=== PATIENT | male | born 1960 | race Caucasian/White ===

== ENCOUNTER 2017-07-29 15:25 | Inpatient (IN) | payer BC ==
[2017-07-29] MEDS ORDERED: HEPARIN SODIUM,PORCINE/D5W PMX 25,000 UNIT in DEXTROSE/WATER 1 500ML.BAG IV STA (16:57)
[2017-07-29] MEDS ORDERED: amLODIPine 10 MG TAB PO STA (17:13)
[2017-07-29 17:18] LABS: Basophils % (A) 1 %; CH 31.3; Eosinophils # (A) 0.2 k/uL (0-0.7); Eosinophils % (A) 3 %; HCT 44.8 % (39.0-53.0); HDW 2.61; HGB 15.8 gm/dL (13.0-17.5); Luc # (Auto) 0.22; Luc % (Auto) 4; Lymphocytes # (A) 1.3 k/uL (1.0-4.8); Lymphocytes % (A) 26 %; MCH 31.6 pg (25.0-35.0); MCHC 35.3 g/dL (31.0-37.0); MCV 89.6 fL (80.0-100.0); Mean Platelet Volume 7.9; Monocytes # (A) 0.4 k/uL (0-1.0); Monocytes % (A) 8 %; Neutrophils % (A) 58 %; WBC 5.2 k/uL (3.8-10.6); WBC (Perox) 5.15
[2017-07-29 17:22] LABS: Partial Thromboplastin Time 24.1 sec (22.0-30.0); Prothrombin Time 9.9 sec (9.0-12.0)
[2017-07-29 17:24] LABS: ALT 87 U/L (21-72); AST 42 U/L (17-59); Alkaline Phosphatase 55 U/L (38-126); Anion Gap 11 mmol/L; Blood Urea Nitrogen 20 mg/dL (9-20); Calcium 9.4 mg/dL (8.4-10.2); Carbon Dioxide 28 mmol/L (22-30); Chloride 101 mmol/L (98-107); Glucose 91 mg/dL (74-99); Magnesium 1.9 mg/dL (1.6-2.3); Non-African American GFR(MDRD) >60 (>60 ml/min/1.73 sqM); Potassium 4.4 mmol/L (3.5-5.1); Sodium 140 mmol/L (137-145); Total Bilirubin 1.1 mg/dL (0.2-1.3); Total Protein 7.9 g/dL (6.3-8.2)
--- NOTE | 2017-07-29 17:53 | XR ---
EXAMINATION TYPE: XR chest 2V DATE OF EXAM: 07/29/2017 COMPARISON: 12/23/2010 HISTORY: Dysrhythmia, hypertension TECHNIQUE: Frontal and lateral views of the chest are obtained. FINDINGS: EKG leads noted. There is no pulmonary edema, focal air space opacity, pleural effusion, o r pneumothorax. The cardiac silhouette size is moderately enlarged. The thoracic aorta is tortuous. The skeletal structures are unremarkable. IMPRESSION: 1. No acute pulmonary or pleural process. 2. Mildly enlarged cardiac silhouette. 3. Tortuous thoracic aorta.
[2017-07-29] MEDS ORDERED: ONDANSETRON 4 MG/2 ML VIAL IVP PRN (20:04)
[2017-07-29] MEDS ORDERED: NALOXONE 0.4 MG/ML 1 ML VIAL IV PRN (20:04)
--- NOTE | 2017-07-29 20:04 | ED ---
Arrhythmia/Palpitations HPI - General Chief Complaint: Arrhythmia/Palpitations Stated Complaint: heart problems-sent by Time Seen by Provider: 07/29/17 16:53 Source: patient Mode of arrival: wheelchair Limitations: no limitations - History of Present Illness Initial Comments: Patient complains of not feeling well. He was at his primary care doctor earlier today, and an EKG was completed. He was found to be in atrial fibrillation. Patient has no pain or swelling the legs. He does not feel like he is having palpitations. He denies any recent long plane or cards. He has not traveled anywhere. He has not taken any medication that is unusual for him. He denies any neck pain or stiffness. He does not take blood thinners. - Related Data Home Medications Medication Instructions Recorded Confirmed Nebivolol HCl [Bystolic] 10 mg PO DAILY 11/26/15 07/29/17 Lisinopril [Prinivil] 10 mg PO DAILY 07/29/17 07/29/17 Ubidecarenone [Co Q-10] 100 mg PO DAILY 07/29/17 07/29/17 Allergies Allergy/AdvReac Type Severity Reaction Status Date / Time No Known Allergies Allergy Verified 07/29/17 16:28 Review of Systems ROS Statement: Those systems with pertinent positive or pertinent negative responses have been documented in the HPI. ROS Other: All systems not noted in ROS Statement are negative. Past Medical History Past Medical History: Hypertension History of Any Multi-Drug Resistant Organisms: C-DIFF Date of last positivie culture/infection: 2014 Past Surgical History: Hernia Repair Additional Past Surgical History / Comment(s): colonoscopy Past Psychological History: No Psychological Hx Reported Smoking Status: Former smoker Past Alcohol Use History: Daily Past Drug Use History: Marijuana General Exam Limitations: no limitations General appearance: alert, in no apparent distress Head exam: Present: atraumatic, normocephalic, normal inspection Eye exam: Present: normal appearance, PERRL, EOMI. Absent: scleral icterus, conjunctival injection, periorbital swelling ENT exam: Present: normal exam, mucous membranes moist Neck exam: Present: normal inspection. Absent: tenderness, meningismus, lymphadenopathy Respiratory exam: Present: normal lung sounds bilaterally. Absent: respiratory distress, wheezes, rales, rhonchi, stridor Cardiovascular Exam: Present: regular rate, normal rhythm, normal heart sounds. Absent: systolic murmur, diastolic murmur, rubs, gallop, clicks GI/Abdominal exam: Present: soft, normal bowel sounds. Absent: distended, tenderness, guarding, rebound, rigid Extremities exam: Present: normal inspection, full ROM, normal capillary refill. Absent: tenderness, pedal edema, joint swelling, calf tenderness Back exam: Present: normal inspection Neurological exam: Present: alert, oriented X3, CN II-XII intact Psychiatric exam: Present: normal affect, normal mood Skin exam: Present: warm, dry, intact, normal color. Absent: rash Course Vital Signs 07/29/17 07/29/17 07/29/17 15:37 17:10 17:42 Temperature 98.4 F Pulse Rate 76 77 Respiratory 18 18 Rate Blood Pressure 230/140 213/117 177/122 O2 Sat by Pulse 96 98 Oximetry 07/29/17 07/29/17 18:39 19:34 Temperature Pulse Rate 68 Respiratory 18 Rate Blood Pressure 170/110 171/131 O2 Sat by Pulse 98 Oximetry EKG Findings - EKG Comments: EKG Findings:: twelve-lead EKG is obtained, interpreted by me as showing ventricular rate 78 bpm, no P waves are present, QRS complexes are normal, no ST elevation or depression, interpreted by me as atrial flutter fibrillation. Medical Decision Making - Medical Decision Making patient presents with new onset atrial fibrillation. I have ordered IV heparin. He will be admitted to the hospital. - Lab Data Result diagrams: 07/29/17 16:11 07/29/17 16:11 Lab Results 07/29/17 07/29/17 07/29/17 Range/Units 16:11 16:11 16:11 WBC 5.2 (3.8-10.6) k/uL RBC 5.00 (4.30-5.90) m/uL Hgb 15.8 (13.0-17.5) gm/dL Hct 44.8 (39.0-53.0) % MCV 89.6 (80.0-100.0) fL MCH 31.6 (25.0-35.0) pg MCHC 35.3 (31.0-37.0) g/dL RDW 13.0 (11.5-15.5) % Plt Count 165 (150-450) k/uL Neutrophils % 58 % Lymphocytes % 26 % Monocytes % 8 % Eosinophils % 3 % Basophils % 1 % Neutrophils # 3.0 (1.3-7.7) k/uL Lymphocytes # 1.3 (1.0-4.8) k/uL Monocytes # 0.4 (0-1.0) k/uL Eosinophils # 0.2 (0-0.7) k/uL Basophils # 0.0 (0-0.2) k/uL PT 9.9 (9.0-12.0) sec INR 1.0 (<1.2) APTT 24.1 (22.0-30.0) sec Sodium 140 (137-145) mmol/L Potassium 4.4 (3.5-5.1) mmol/L Chloride 101 (98-107) mmol/L Carbon Dioxide 28 (22-30) mmol/L Anion Gap 11 mmol/L BUN 20 (9-20) mg/dL Creatinine 0.98 (0.66-1.25) mg/dL Est GFR (MDRD) Af Amer >60 (>60 ml/min/1.73 sqM) Est GFR (MDRD) Non-Af >60 (>60 ml/min/1.73 sqM) Glucose 91 (74-99) mg/dL Calcium 9.4 (8.4-10.2) mg/dL Magnesium 1.9 (1.6-2.3) mg/dL Total Bilirubin 1.1 (0.2-1.3) mg/dL AST 42 (17-59) U/L ALT 87 H (21-72) U/L Alkaline Phosphatase 55 (38-126) U/L Troponin I (0.000-0.034) ng/mL Total Protein 7.9 (6.3-8.2) g/dL Albumin 4.8 (3.5-5.0) g/dL TSH 2.750 (0.465-4.680) mIU/L 07/29/17 Range/Units 16:11 WBC (3.8-10.6) k/uL RBC (4.30-5.90) m/uL Hgb (13.0-17.5) gm/dL Hct (39.0-53.0) % MCV (80.0-100.0) fL MCH (25.0-35.0) pg MCHC (31.0-37.0) g/dL RDW (11.5-15.5) % Plt Count (150-450) k/uL Neutrophils % % Lymphocytes % % Monocytes % % Eosinophils % % Basophils % % Neutrophils # (1.3-7.7) k/uL Lymphocytes # (1.0-4.8) k/uL Monocytes # (0-1.0) k/uL Eosinophils # (0-0.7) k/uL Basophils # (0-0.2) k/uL PT (9.0-12.0) sec INR (<1.2) APTT (22.0-30.0) sec Sodium (137-145) mmol/L Potassium (3.5-5.1) mmol/L Chloride (98-107) mmol/L Carbon Dioxide (22-30) mmol/L Anion Gap mmol/L BUN (9-20) mg/dL Creatinine (0.66-1.25) mg/dL Est GFR (MDRD) Af Amer (>60 ml/min/1.73 sqM) Est GFR (MDRD) Non-Af (>60 ml/min/1.73 sqM) Glucose (74-99) mg/dL Calcium (8.4-10.2) mg/dL Magnesium (1.6-2.3) mg/dL Total Bilirubin (0.2-1.3) mg/dL AST (17-59) U/L ALT (21-72) U/L Alkaline Phosphatase (38-126) U/L Troponin I <0.012 (0.000-0.034) ng/mL Total Protein (6.3-8.2) g/dL Albumin (3.5-5.0) g/dL TSH (0.465-4.680) mIU/L Disposition Clinical Impression: Atrial fibrillation Disposition: ADMITTED IP TO THIS HOSP Condition: Fair Referrals: Gunnar Martell MD [Primary Care Provider] - 1-2 days Time of Disposition: 20:04
[2017-07-29] MEDS: LOSARTAN 50 MG TAB PO SCH (23:15)
[2017-07-29] MEDS: FAMOTIDINE 20 MG TAB PO SCH (23:15)
[2017-07-30] MEDS ORDERED: LABETALOL 5 MG/ML VIAL MDV IVP STA ×2 (01:00→05:16)
[2017-07-30] MEDS ORDERED: HEPARIN SODIUM,PORCINE 5,000 UNIT/ML 1 ML VIAL IV STA (02:58)
[2017-07-30 04:38] VITALS: BMI 36.3
[2017-07-30] MEDS: HEPARIN SODIUM,PORCINE/D5W PMX 25,000 UNIT in DEXTROSE/WATER 1 500ML.BAG IV SCH ×3 (04:39→15:28)
[2017-07-30] MEDS: NEBIVOLOL 5 MG TAB PO SCH (08:25)
[2017-07-30] MEDS: LOSARTAN 50 MG TAB PO SCH (08:25)
[2017-07-30] MEDS: FAMOTIDINE 20 MG TAB PO SCH ×2 (08:25→20:24)
[2017-07-30] MEDS ORDERED: LISINOPRIL 10 MG TAB PO SCH (09:00)
--- NOTE | 2017-07-30 11:03 | P.CRDCN ---
History of Present Illness Consult date: 07/30/17 Consult reason: atrial fibrillation History of present illness: 57-year-old gentleman with history of hypertensive heart disease and EtOH abuse comes to hospital with atrial fibrillation. He recently had a problem with arthritis of the left knee was seen by the primary care physician had an EKG that showed atrial fibrillation and was advised to go to hospital. He denies chest pain difficulty in breathing palpitations dizziness or syncope. There is no history of CVA. There is no history of focal neurological deficits area at TSH is normal EKG shows A. fib with nonspecific ST-T wave changes. There is no prior history of congestive heart failure R Pramod artery disease or cardiomyopathy. Blood pressure this morning is poorly controlled I am adding Norvasc 10 mg daily and Catapres 0.1 twice a day for better control of her blood pressure. I will continue the by systolic and the Cozaar that is currently on. If he is covered for the novel anticoagulants he can stop the heparin and start him on the newer agent. Once the blood pressure is well controlled he can be discharged home and pursue him further in the outpatient setting. He needs a stress test and he will undergo cardioversion. I advised the patient to stop drinking Review of Systems Constitutional: Denies chills. Denies fever. Eyes: Denies blurred vision. Denies pain. Ears, nose, mouth and throat: Denies headache. Denies sore throat. Cardiovascular: Denies chest pain. Denies shortness of breath. Respiratory: Denies cough. Gastrointestinal: Denies abdominal pain. Denies diarrhea. Denies nausea. Denies vomiting. Musculoskeletal: Denies myalgias. Joint pain Integumentary: Denies pruritus. Denies rash. Neurological: Denies numbness. Denies weakness. Psychiatric: Denies anxiety. Denies depression. Endocrine: Denies fatigue. Denies weight change. Genitourinary: Denies burning, hematuria, frequency of urination. Hematological: No anemia or excess bleeding. Past Medical History Past Medical History: Hypertension History of Any Multi-Drug Resistant Organisms: C-DIFF Date of last positivie culture/infection: 2014 MDRO Source:: stool Past Surgical History: Hernia Repair, Tonsillectomy Additional Past Surgical History / Comment(s): colonoscopy Past Anesthesia/Blood Transfusion Reactions: No Reported Reaction Past Psychological History: No Psychological Hx Reported Smoking Status: Former smoker Past Alcohol Use History: Daily Additional Past Alcohol Use History / Comment(s): pt states he drinks vodka and coke daily, usually 1 to 8 drinks 4 to 5 times a week Past Drug Use History: Marijuana - Past Family History Father Family Medical History: No Reported History Mother Family Medical History: COPD Additional Family Medical History / Comment(s): sep 2016 Medications and Allergies Home Medications Medication Instructions Recorded Confirmed Type Nebivolol HCl [Bystolic] 10 mg PO DAILY 11/26/15 07/29/17 History Lisinopril [Prinivil] 10 mg PO DAILY 07/29/17 07/29/17 History Ubidecarenone [Co Q-10] 100 mg PO DAILY 07/29/17 07/29/17 History Allergies Allergy/AdvReac Type Severity Reaction Status Date / Time No Known Allergies Allergy Verified 07/29/17 16:28 Physical Exam Vitals: Vital Signs Temp Pulse Pulse Resp BP BP BP 07/30/17 08:00 98.5 F 87 18 167/108 07/30/17 05:39 149/106 07/30/17 05:25 177/109 07/30/17 05:07 174/102 07/30/17 05:05 18 07/30/17 03:00 76 18 175/114 07/30/17 02:31 73 18 162/102 07/30/17 02:17 85 18 181/118 07/30/17 00:51 185/136 07/30/17 00:20 97.1 F L 89 18 200/133 07/30/17 00:00 76 18 190/122 07/29/17 23:17 87 18 196/126 07/29/17 23:01 70 18 206/106 07/29/17 22:00 78 18 207/127 07/29/17 19:34 171/131 07/29/17 18:39 68 18 170/110 07/29/17 17:42 77 18 177/122 07/29/17 17:10 213/117 07/29/17 15:37 98.4 F 76 18 230/140 Pulse Ox 07/30/17 08:00 96 07/30/17 05:39 07/30/17 05:25 07/30/17 05:07 07/30/17 05:05 07/30/17 03:00 92 L 07/30/17 02:31 07/30/17 02:17 93 L 07/30/17 00:51 07/30/17 00:20 97 07/30/17 00:00 92 L 07/29/17 23:17 93 L 07/29/17 23:01 99 07/29/17 22:00 95 07/29/17 19:34 07/29/17 18:39 98 07/29/17 17:42 98 07/29/17 17:10 07/29/17 15:37 96 Intake and Output 07/29/17 07/30/17 07/30/17 22:59 06:59 14:59 Intake Total 1113.5 208.903 Balance 1113.5 208.903 Intake: IV 142 .9 40 Heparin Sodium,Porcine/ 102 D5w Pmx 25,000 unit In Dextrose/Water 1 500ml. bag @ 17.8 UNITS/KG/HR 46 .18 mls/hr IV .[id number] NAE Rx#:[id number] Amount of Fluid Infused ( 500 ml) Intake, IV Titration 471.5 208.903 Amount Heparin Sodium,Porcine/ 208.903 D5w Pmx 25,000 unit In Dextrose/Water 1 500ml. bag @ 17.8 UNITS/KG/HR 46 .18 mls/hr IV .[id number] NAE Rx#:[id number] Heparin Sodium,Porcine/ 471.5 D5w Pmx 25,000 unit In Dextrose/Water 1 500ml. bag @ 18 UNITS/KG/HR 46.7 mls/hr IV .[id number] STA Rx#:[id number] Other: Voiding Method Toilet Weight 129.727 kg 128.3 kg General: The patient is awake and alert, in no distress, and does not appear acutely ill. Skin: Skin is warm and dry and no rashes or lesions are noted. Eye: Pupils are equal, round and reactive to light, extra-ocular movements are intact; there is normal conjunctiva bilaterally. Ears, nose, mouth and throat: There are moist mucous membranes and no oral lesions. Neck: The neck is supple, there is no tenderness or JVD. Cardiovascular: Irregular No murmur, rub or gallop is appreciated. Respiratory: Lungs are clear to auscultation, respirations are non-labored, breath sounds are equal. Gastrointestinal: Soft, non-distended, non-tender abdomen without masses or organomegaly noted. There is no rebound or guarding present. Bowel sounds are unremarkable. Back: There is no tenderness to palpation in the midline. There is no obvious deformity. Musculoskeletal: Normal ROM, no tenderness, There is no pedal edema. There is no calf tenderness or swelling. Extremities: No edema. Vascular: Femoral pulse is normal. Posterior tibial pulses are normal .Dorsalis pedis is palpable. Neurological: CN II-XII intact. There are no obvious motor or sensory deficits. Speech is normal. Psychiatric: Cooperative, appropriate mood & affect, normal judgment. Results 07/29/17 16:11 07/29/17 16:11 Cardiac Enzymes 07/29/17 07/29/17 07/29/17 Range/Units 16:11 16:11 22:52 AST 42 (17-59) U/L Troponin I <0.012 <0.012 (0.000-0.034) ng/mL 07/30/17 Range/Units 04:36 AST (17-59) U/L Troponin I <0.012 (0.000-0.034) ng/mL Coagulation 07/29/17 07/30/17 07/30/17 Range/Units 16:11 01:11 08:08 PT 9.9 (9.0-12.0) sec APTT 24.1 43.9 H 68.2 H (22.0-30.0) sec CBC 07/29/17 Range/Units 16:11 WBC 5.2 (3.8-10.6) k/uL RBC 5.00 (4.30-5.90) m/uL Hgb 15.8 (13.0-17.5) gm/dL Hct 44.8 (39.0-53.0) % Plt Count 165 (150-450) k/uL Comprehensive Metabolic Panel 07/29/17 Range/Units 16:11 Sodium 140 (137-145) mmol/L Potassium 4.4 (3.5-5.1) mmol/L Chloride 101 (98-107) mmol/L Carbon Dioxide 28 (22-30) mmol/L BUN 20 (9-20) mg/dL Creatinine 0.98 (0.66-1.25) mg/dL Glucose 91 (74-99) mg/dL Calcium 9.4 (8.4-10.2) mg/dL AST 42 (17-59) U/L ALT 87 H (21-72) U/L Alkaline Phosphatase 55 (38-126) U/L Total Protein 7.9 (6.3-8.2) g/dL Albumin 4.8 (3.5-5.0) g/dL Current Medications Generic Name Dose Route Start Last Admin Trade Name Freq PRN Reason Stop Dose Admin Famotidine 20 mg 07/29/17 21:00 07/30/17 08:25 Pepcid PO 20 mg BID NAE Administration Heparin Sodium/Dextrose 25,000 500 mls @ 46.18 mls/hr 07/29/17 20:04 08:44 unit/ IV Solution IV 19.72 units/kg/hr .[id number] NAE 51.16 mls/hr Protocol Titration 17.8 UNITS/KG/HR Lisinopril 10 mg 07/30/17 09:00 07/30/17 08:25 Zestril PO 10 mg DAILY NAE Administration Losartan Potassium 100 mg 07/29/17 23:00 07/30/17 08:25 Cozaar PO 100 mg DAILY NAE Administration Naloxone HCl 0.2 mg 07/29/17 20:04 Narcan IV Q2M PRN Opioid Reversal Nebivolol 10 mg 07/30/17 09:00 07/30/17 08:25 Bystolic PO 10 mg DAILY NAE Administration Ondansetron HCl 4 mg 07/29/17 20:04 Zofran IVP Q8HR PRN Nausea And Vomiting Intake and Output 07/29/17 07/30/17 07/30/17 22:59 06:59 14:59 Intake Total 1113.5 208.903 Balance 1113.5 208.903 Intake: IV 142 .9 40 Heparin Sodium,Porcine/ 102 D5w Pmx 25,000 unit In Dextrose/Water 1 500ml. bag @ 17.8 UNITS/KG/HR 46 .18 mls/hr IV .[id number] NAE Rx#:[id number] Amount of Fluid Infused ( 500 ml) Intake, IV Titration 471.5 208.903 Amount Heparin Sodium,Porcine/ 208.903 D5w Pmx 25,000 unit In Dextrose/Water 1 500ml. bag @ 17.8 UNITS/KG/HR 46 .18 mls/hr IV .[id number] [facility] Rx#:[id number] Heparin Sodium,Porcine/ 471.5 D5w Pmx 25,000 unit In Dextrose/Water 1 500ml. bag @ 18 UNITS/KG/HR 46.7 mls/hr IV .[id number] STA Rx#:[id number] Other: Voiding Method Toilet Weight 129.727 kg 128.3 kg 07/29/17 16:11 07/29/17 16:11 EKG Interpretations (text) Atrial fibrillation with nonspecific ST-T wave changes Assessment and Plan Plan: Persistent atrial fibrillation Hypertensive heart disease I will review the echocardiogram adjust antihypertensives see the patient is covered for the newer anticoagulants
[2017-07-30] MEDS: amLODIPine 10 MG TAB PO SCH (11:49)
[2017-07-30] MEDS: cloNIDine HCL 0.1 MG TAB PO SCH ×2 (15:33→19:55)
[2017-07-30] MEDS: RIVAROXABAN 15 MG TAB PO SCH (17:10)
--- NOTE | 2017-07-30 18:31 | ECHOF ---
Referral Reason:a fib MEASUREMENTS -------- HEIGHT: 188.0 cm WEIGHT: 127.9 kg BP: 149/106 RVIDd: 3.3 cm (< 3.3) IVSd: 1.7 cm (0.6 - 1.1) LVIDd: 5.0 cm (3.9 - 5.3) LVPWd: 1.6 cm (0.6 - 1.1) IVSs: 2.3 cm LVIDs: 3.1 cm LVPWs: 2.2 cm LA Diam: 4.3 cm (2.7 - 3.8) LAESV Index (A-L): 32.73 ml/m Ao Diam: 3.9 cm (2.0 - 3.7) AV Cusp: 2.5 cm (1.5 - 2.6) MV EXCURSION: 12.885 mm (> 18.000) MV EF SLOPE: 99 mm/s (70 - 150) EPSS: 0.6 cm FINDINGS -------- Atrial fibrillation. This was a technically adequate study. The left ventricular size is normal. There is severe concentric left ventricular hypertrophy. Overall left ventricular systolic function is normal with, an EF between 55 - 60 %. The right ventricle is mildly enlarged. LA is midly dilated 29-33ml/m2. The right atrium is normal in size. There is mild aortic valve sclerosis. The mitral valve leaflets are mildly thickened. There is trace mitral regurgitation. Trace tricuspid regurgitation present. The pulmonic valve was not well visualized. The aortic root is dilated measuring 3.9cm. Normal inferior vena cava with normal inspiratory collapse consistent with estimated right atrial pressure of 5 mmHg. There is no pericardial effusion. CONCLUSIONS -------- 1. Atrial fibrillation. 2. The mitral valve leaflets are mildly thickened. 3. There is trace mitral regurgitation. 4. Trace tricuspid regurgitation present. 5. The pulmonic valve was not well visualized. 6. The aortic root is dilated measuring 3.9cm. 7. Normal inferior vena cava with normal inspiratory collapse consistent with estimated right atrial pressure of 5 mmHg. 8. There is no pericardial effusion. 9. This was a technically adequate study. 10. The left ventricular size is normal. 11. There is severe concentric left ventricular hypertrophy. 12. Overall left ventricular systolic function is normal with, an EF between 55 - 60 %. 13. The right ventricle is mildly enlarged. 14. LA is midly dilated 29-33ml/m2. 15. The right atrium is normal in size. 16. There is mild aortic valve sclerosis. [employer] SUPERVISOR: Berenice Galvez RDCS
--- NOTE | 2017-07-30 18:42 | P.HPIM ---
History of Present Illness H&P Date: 07/30/17 Chief Complaint: Palpitations Is a 57-year-old gentleman that initially went to Dr. Martell's office for evaluation of left knee pain. At that time patient was noted to have elevated pressure and atrial fibrillation. Patient at that time was noted to have a blood pressure on to 230 or 128 patient apparently has had a long history over uncontrolled hypertension. he was noted to be in atrial fibrillation with controlled ventricular rate initially. Patient was started on heparin. he was evaluated by cardiology prior to my evaluation, blood pressure medications were added including clonidine at this time. Patient denies having any family history of significant hypertension. No previous history of strokes or MIs reported by the patient Follows a poor diet Previous history of tobacco use Denies having any headaches blurry vision nausea vomiting chest pain difficulty in breathing abdominal pain diarrhea urinary urgency or frequency at this time 14 point review of system was done nonpertinent was mentionable Physical exam Gen. appearance oriented 3 in no distress Neck is supple no JVD Lungs good air entry clear to auscultation no rhonchi or wheezing Heart irregular no murmurs appreciated Abdomen is soft nontender no organomegaly bowel sounds are intact Neurologically cranial nerves II-12 grossly intact no focal motor or sensory deficits noted Skin no abnormalities appreciated Assessment and plan #1 new-onset atrial fibrillation with controlled ventricular rate #2 hypertension with urgency #3 clinical obstructive sleep apnea Plan Continue current care. Patient is on 3 antihypertensive medications will obtain a renal Doppler to rule out renal artery stenosis We'll also obtain a renin angiotensin level however interpretation would be difficult as patient is on JUDY inhibitor We'll moniter patient overnight patient is started on xarelto . CADSVASC at of atleast 1, further workup in progress Past Medical History Past Medical History: Hypertension History of Any Multi-Drug Resistant Organisms: C-DIFF Date of last positivie culture/infection: 2014 MDRO Source:: stool Past Surgical History: Hernia Repair, Tonsillectomy Additional Past Surgical History / Comment(s): colonoscopy Past Anesthesia/Blood Transfusion Reactions: No Reported Reaction Past Psychological History: No Psychological Hx Reported Smoking Status: Former smoker Past Alcohol Use History: Daily Additional Past Alcohol Use History / Comment(s): pt states he drinks vodka and coke daily, usually 1 to 8 drinks 4 to 5 times a week Past Drug Use History: Marijuana - Past Family History Father Family Medical History: No Reported History Mother Family Medical History: COPD Additional Family Medical History / Comment(s): sep 2016 Medications and Allergies Home Medications Medication Instructions Recorded Confirmed Type Nebivolol HCl [Bystolic] 10 mg PO DAILY 11/26/15 07/29/17 History Lisinopril [Prinivil] 10 mg PO DAILY 07/29/17 07/29/17 History Ubidecarenone [Co Q-10] 100 mg PO DAILY 07/29/17 07/29/17 History Allergies Allergy/AdvReac Type Severity Reaction Status Date / Time No Known Allergies Allergy Verified 07/29/17 16:28 Physical Exam Vitals: Vital Signs Temp Pulse Pulse Resp BP BP BP 07/30/17 16:00 96.0 F L 91 18 165/113 07/30/17 12:00 96.8 F L 76 18 171/107 07/30/17 08:00 98.5 F 87 18 167/108 07/30/17 05:39 149/106 07/30/17 05:25 177/109 07/30/17 05:07 174/102 07/30/17 05:05 18 07/30/17 03:00 76 18 175/114 07/30/17 02:31 73 18 162/102 07/30/17 02:17 85 18 181/118 07/30/17 00:51 185/136 07/30/17 00:20 97.1 F L 89 18 200/133 07/30/17 00:00 76 18 190/122 07/29/17 23:17 87 18 196/126 07/29/17 23:01 70 18 206/106 07/29/17 22:00 78 18 207/127 07/29/17 19:34 171/131 07/29/17 18:39 68 18 170/110 Pulse Ox 07/30/17 16:00 96 07/30/17 12:00 96 07/30/17 08:00 96 07/30/17 05:39 07/30/17 05:25 07/30/17 05:07 07/30/17 05:05 07/30/17 03:00 92 L 07/30/17 02:31 07/30/17 02:17 93 L 07/30/17 00:51 07/30/17 00:20 97 07/30/17 00:00 92 L 07/29/17 23:17 93 L 07/29/17 23:01 99 07/29/17 22:00 95 07/29/17 19:34 07/29/17 18:39 98 Intake and Output 07/30/17 07/30/17 07/30/17 06:59 14:59 22:59 Intake Total 1113.5 500.000 237 Balance 1113.5 500.000 237 Intake: IV 142 .9 40 Heparin Sodium,Porcine/ 102 D5w Pmx 25,000 unit In Dextrose/Water 1 500ml. bag @ 17.8 UNITS/KG/HR 46 .18 mls/hr IV .[id number] NAE Rx#:[id number] Amount of Fluid Infused ( 500 ml) Intake, IV Titration 471.5 500.000 Amount Heparin Sodium,Porcine/ 500.000 D5w Pmx 25,000 unit In Dextrose/Water 1 500ml. bag @ 17.8 UNITS/KG/HR 46 .18 mls/hr IV .[id number] NAE Rx#:[id number] Heparin Sodium,Porcine/ 471.5 D5w Pmx 25,000 unit In Dextrose/Water 1 500ml. bag @ 18 UNITS/KG/HR 46.7 mls/hr IV .[id number] STA Rx#:[id number] Oral 237 Other: Voiding Method Toilet # Voids 2 Weight 128.3 kg Results CBC & Chem 7: 07/29/17 16:11 07/29/17 16:11 Labs: Abnormal Lab Results - Last 24 Hours (Table) 07/30/17 07/30/17 Range/Units 01:11 08:08 APTT 43.9 H 68.2 H (22.0-30.0) sec Thrombosis Risk Factor Assmnt - Choose All That Apply Any of the Below Risk Factors Present?: Yes Each Factor Represents 1 point: Age 41-60 years Other Risk Factors: No Other congenital or acquired thrombophilia - If yes, enter type in comment: No Thrombosis Risk Factor Assessment Total Risk Factor Score: 1 Thrombosis Risk Factor Assessment Level: Low Risk
[2017-07-30] MEDS ORDERED: MELATONIN 3 MG TABLET PO SCH (22:15)
[2017-07-31] MEDS: RIVAROXABAN 15 MG TAB PO SCH (07:15)
[2017-07-31] MEDS: FAMOTIDINE 20 MG TAB PO SCH (08:24)
[2017-07-31] MEDS: amLODIPine 10 MG TAB PO SCH (08:24)
[2017-07-31] MEDS: LOSARTAN 50 MG TAB PO SCH (08:24)
[2017-07-31] MEDS: cloNIDine HCL 0.1 MG TAB PO SCH (08:24)
[2017-07-31 08:44] VITALS: RESP 18
--- NOTE | 2017-07-31 09:36 | US ---
EXAMINATION TYPE: US renal artery duplex completa DATE OF EXAM: 07/31/2017 COMPARISON: NONE CLINICAL HISTORY: elevated blood pressure. HTN for at least 15 years, controlled on medication until just recently. Elevated blood pressure with knee pain. MEASUREMENTS: RENAL SIZE: Rt Kidney: 11.1 x 5.6 x 6.2 cm Lt Kidney: 10.6 x 5.8 x 5.7 cm RESISTANCE INDEX Right: 0.57 Left: 0.56 RA/AO RATIO (< 3.5 ) Right: 1.7 Left: 1.9 RA VELOCITY ( < 180 cm/s) Right: 112 Left: 126 renals and aorta unremarkable as visualized. Aorta and proximal renal arteries limited vis due to pat ient body habitus. No ultrasound evidence for renal artery stenosis, no elevated velocities, good ups troke on segmentals at renal hilum. IMPRESSION: NO EVIDENCE OF A SIGNIFICANT RENAL ARTERY STENOSIS IN EITHER KIDNEY.
[2017-07-31] MEDS: NEBIVOLOL 5 MG TAB PO SCH (09:38)
--- NOTE | 2017-07-31 10:29 | P.PN ---
Subjective Principal diagnosis: Atrial fibrillation This is a pleasant 57-year-old gentleman with a history of hypertension, EtOH abuse, and left knee pain. Since the hospital with atrial fibrillation after being seen by his primary care physician. TSH was found to be normal and EKG showed atrial fibrillation with nonspecific ST-T wave changes. 2-D echo with Doppler show severe concentric LVH with normal LV systolic function, ejection fraction 55-60%. Atrial fibrillation has been with a controlled ventricular rate. Upon examination, patient is resting comfortably in bed. He denies any complaints of shortness of breath, palpitations, dizziness, syncope or chest discomfort. Patient has poorly controlled hypertension currently on amlodipine 10 mg by mouth daily, clonidine 0.1 mg by mouth 3 times a day, losartan 100 mg by mouth daily and diastolic 10 mg by mouth daily. Blood pressure remains quite elevated. Renal artery duplex showed no evidence of significant renal artery stenosis. Objective - Vital Signs Vital signs: Vital Signs Temp 96.3 F L 07/31/17 08:00 Pulse 78 07/31/17 08:00 Resp 18 07/31/17 08:00 BP 194/112 07/31/17 08:00 Pulse Ox 95 07/31/17 08:00 Intake & Output 07/30/17 07/31/17 07/31/17 18:59 06:59 18:59 Intake Total 737.000 10 0 Balance 737.000 10 0 Weight 128.1 kg Intake: IV 10 .9 10 Intake, IV Titration 500.000 Amount Heparin Sodium,Porcine/ 500.000 D5w Pmx 25,000 unit In Dextrose/Water 1 500ml. bag @ 17.8 UNITS/KG/HR 46 .18 mls/hr IV .[id number] [facility] Rx#:[id number] Oral 237 0 Other: Voiding Method Toilet # Voids 2 1 - Exam PHYSICAL EXAMINATION: HEENT: Head is atraumatic, normocephalic. Pupils equal, round. Neck is supple. There is no elevated jugular venous pressure. HEART EXAMINATION: Heart sounds regular, S1 and S2 normal. No murmur or gallop heard. CHEST EXAMINATION: Lungs are clear to auscultation and precussion. No chest wall tenderness is noted on palpation or with deep breathing. ABDOMEN: Soft, nontender. Bowel sounds are heard. No organomegaly noted. EXTREMITIES: 2+ peripheral pulses with evidence of trace peripheral edema and no calf tenderness noted. NEUROLOGIC patient is awake, alert and oriented x3. . - Labs CBC & Chem 7: 07/29/17 16:11 07/29/17 16:11 Labs: Abnormal Lab Results - Last 24 Hours (Table) 07/30/17 Range/Units 17:05 Angiotensin Convert Enz 5 L (8-52) U/L Assessment and Plan Plan: Assessment and plan #1 persistent atrial fibrillation #2 hypertension, uncontrolled #3 LVH #4 EtOH abuse We will increase patient's clonidine to 0.3 mg by mouth 3 times a day and add hydralazine 50 mg by mouth 3 times a day. Monitor blood pressure closely. Patient possibly to be discharged home this afternoon or tomorrow depending on blood pressure response. Patient will need to be followed up as an outpatient and likely scheduled for cardiac catheterization as well as cardioversion. The above dictated assessment and findings were discussed with signing physician. The impression and plan of care have been directed as dictated. Tova Cespedes, Nurse Practitioner, acting as scribe for signing physician.
[2017-07-31 11:34] VITALS: BP 137/90; PULSE 74; TEMP 97.9
--- NOTE | 2017-07-31 15:02 | P.DS ---
Providers Date of admission: 07/29/17 20:05 Attending physician: Gunnar Martell Consults: 07/29/17 20:05 Consult Physician Routine Consulting Provider: Sang Huff Consult Reason/Comments: a fib Do you want consulting provider notified?: Yes Primary care physician: Gunnar Martell [facility] Course: Is a 57-year-old gentleman that initially went to Dr. Martell's office for evaluation of left knee pain. At that time patient was noted to have elevated pressure and atrial fibrillation. Patient at that time was noted to have a blood pressure on to 230 or 128 patient apparently has had a long history over uncontrolled hypertension. he was noted to be in atrial fibrillation with controlled ventricular rate initially. Patient was started on heparin. he was evaluated by cardiology prior to my evaluation, blood pressure medications were added including clonidine at this time. Patient denies having any family history of significant hypertension. No previous history of strokes or MIs reported by the patient Follows a poor diet Previous history of tobacco use Denies having any headaches blurry vision nausea vomiting chest pain difficulty in breathing abdominal pain diarrhea urinary urgency or frequency at this time 14 point review of system was done nonpertinent was mentionable Physical exam Gen. appearance oriented 3 in no distress Neck is supple no JVD Lungs good air entry clear to auscultation no rhonchi or wheezing Heart irregular no murmurs appreciated Abdomen is soft nontender no organomegaly bowel sounds are intact Neurologically cranial nerves II-12 grossly intact no focal motor or sensory deficits noted Skin no abnormalities appreciated Assessment and plan #1 new-onset atrial fibrillation with controlled ventricular rate #2 hypertension with urgency #3 clinical obstructive sleep apnea Plan Patient's blood pressures improved. Patient will be discharged on by losartan 100 mg clonidine 0.1 by mouth twice a day hydralazine 50 mg by mouth twice a day amlodipine 10 mg and beta ashley at his home dose Patient should be worked up for secondary hypertension renal artery stenosis was ruled out via Doppler study A renin aldosterone level should be ordered on outpatient basis Patient is doing well was able to move without difficulty Anticoagulation for atrial fibrillation Follow-up with cardiology for coronary angiography Patient Condition at Discharge: Fair Plan - Discharge Summary New Discharge Prescriptions: New amLODIPine [Norvasc] 10 mg PO DAILY #30 tab cloNIDine HCL [Catapres] 0.1 mg PO BID #60 tab hydrALAZINE HCL [Apresoline] 50 mg PO BID #60 tab Losartan [Cozaar] 100 mg PO DAILY #30 tab Rivaroxaban [Xarelto] 20 mg PO W/SUPPER tab Continue Nebivolol HCl [Bystolic] 10 mg PO DAILY Ubidecarenone [Co Q-10] 100 mg PO DAILY Discontinued Lisinopril [Prinivil] 10 mg PO DAILY Discharge Medication List Nebivolol HCl [Bystolic] 10 mg PO DAILY 11/26/15 [History] Ubidecarenone [Co Q-10] 100 mg PO DAILY 07/29/17 [History] Losartan [Cozaar] 100 mg PO DAILY #30 tab 07/31/17 [Rx] Rivaroxaban [Xarelto] 20 mg PO W/SUPPER tab 07/31/17 [Rx] amLODIPine [Norvasc] 10 mg PO DAILY #30 tab 07/31/17 [Rx] cloNIDine HCL [Catapres] 0.1 mg PO BID #60 tab 07/31/17 [Rx] hydrALAZINE HCL [Apresoline] 50 mg PO BID #60 tab 07/31/17 [Rx] Follow up Appointment(s)/Referral(s): Gunnar Martell MD [Primary Care Provider] - 1-2 days See Lomax MD [STAFF PHYSICIAN] - 1 Week Patient Instructions/Handouts: Atrial Fibrillation (DC) Activity/Diet/Wound Care/Special Instructions: Please warehouse order picker free month supply of Xarelto from pharmacy on discharge. Discharge Disposition: HOME SELF-CARE
[2017-07-31] MEDS ORDERED: cloNIDine HCL 0.1 MG TAB PO SCH (16:00)
[2017-07-31] MEDS ORDERED: hydrALAZINE HCL 50 MG TAB PO SCH (16:00)
[2017-07-31] MEDS ORDERED: RIVAROXABAN 10 MG TAB PO SCH (17:30)
== END 2017-07-31 16:02 | disposition home or self-care (01) | DRG 310 ==
LOC: EC 15:25 → 6SEL 20:05
PROVIDERS: ADMIT Family Medicine; ATTEND Family Medicine
DX: I48.1 Persistent atrial fibrillation (principal); I11.9 Hypertensive heart disease without heart failure; F10.10 Alcohol abuse, uncomplicated; G47.33 Obstructive sleep apnea (adult) (pediatric); M17.12 Unilateral primary osteoarthritis, left knee; Z79.899 Other long term (current) drug therapy; Z82.5 Family history of asthma and other chronic lower respiratory diseases; Z87.891 Personal history of nicotine dependence
CPT/HCPCS: 36415; 71020; 80053; 82164; 83735; 84244; 84443; 84484; 85025; 85610; 85730; 93005; 93306; 93975; 96365; 96366; 96375; 96376; 99285

== ENCOUNTER → 2017-09-08 | Outpatient (CLI) | payer BC ==
[2017-09-08 11:45] LABS: CH 30.9; CHCM 34.2; HCT 44.7 % (39.0-53.0); HDW 2.87; HGB 14.7 gm/dL (13.0-17.5); MCH 29.8 pg (25.0-35.0); MCHC 32.9 g/dL (31.0-37.0); MCV 90.5 fL (80.0-100.0); Mean Platelet Volume 7.7; RBC 4.94 m/uL (4.30-5.90); RDW 12.4 % (11.5-15.5); WBC 3.6 k/uL (3.8-10.6)
[2017-09-08 11:56] LABS: Anion Gap 8 mmol/L; Blood Urea Nitrogen 14 mg/dL (9-20); Carbon Dioxide 27 mmol/L (22-30); Chloride 105 mmol/L (98-107); Non-African American GFR(MDRD) >60 (>60 ml/min/1.73 sqM); Potassium 4.8 mmol/L (3.5-5.1); Sodium 140 mmol/L (137-145)
== END | disposition home or self-care (01) ==
LOC: LABPAT 10:53
PROVIDERS: ATTEND Internal Medicine Cardiovascular Disease
DX: Z01.812 Encounter for preprocedural laboratory examination (principal); I48.2 Chronic atrial fibrillation
CPT/HCPCS: 36415; 80051; 82565; 84520; 85027

== ENCOUNTER 2017-09-14 07:55 | Day surgery (SDC) | payer BC ==
[2017-09-09 09:29] VITALS: BMI 34.2
[~2017-09-14 07:55] MED LIST: SODIUM CHLORIDE 0.9% 1,000 ML IV SCH
[2017-09-14 08:25] VITALS: TEMP 98.1
[2017-09-14] MEDS ORDERED: SODIUM CHLORIDE 0.9% 500 ML IV ONE (08:26)
[2017-09-14] MEDS ORDERED: PROPOFOL 10 MG/ML 20 ML VIAL IV ONE (08:48)
[2017-09-14] MEDS ORDERED: LIDOCAINE 1% INJ 10MG/ML (20 ML MDV) ONE (08:48)
[2017-09-14] MEDS ORDERED: BENZOCAINE SPRAY 1 SPRAY CAN MUCOUS MEM ONE (08:50)
[2017-09-14] MEDS ORDERED: SODIUM CHLORIDE 0.9% 1,000 ML IV SCH (09:15)
[2017-09-14 09:51] VITALS: RESP 16
[2017-09-14 11:31] VITALS: BP 121/89; PULSE 59
--- NOTE | 2017-09-14 12:39 | ECHOT ---
TRANSESOPHAGEAL ECHOCARDIOGRAM INDICATION: Chronic atrial fibrillation prior to cardioversion. PROCEDURE NOTE: After obtaining informed consent, transesophageal echocardiogram was performed in left lateral position using an Omni plane probe. Local and IV sedation were obtained by the mainspring former arbor end. FINDINGS: Left Atrium; left atrium appears enlarged. Right atrium and right ventricle exam within normal limits. Left ventricle has normal size and systolic function. Left atrial appendage is free of thrombus. Interatrial Septum: There is no evidence of right- to-left shunt by agitated saline contrast study. Mitral Valve: Mitral valve is anatomically normal. There is trace mitral regurgitation noted. Tricuspid valve shows trace tricuspid regurgitation. Aortic valve is free of stenosis, regurgitation. Aorta seems within normal limits. CONCLUSIONS: 1. No intracardiac thrombus. 2. Normal left ventricular function. PLAN: Patient will undergo cardioversion. MMLIZETL / IJN: [id number] /
--- NOTE | 2017-09-14 12:46 | CE ---
CARDIAC ELECTROPHYSIOLOGY REPORT PROCEDURE NOTE: Cardioversion. INDICATION: Chronic atrial fibrillation. After obtaining informed consent, and ensuring that the patient had been adequately and anticoagulated with Xarelto, the patient was anesthetized by the spray dyer and we made 2 attempts at cardioversion; initially using 300 joules DC current and subsequently 360 joules. The patient transiently converted to sinus rhythm but went right back into atrial fibrillation. The plan at this stage is to continue the anticoagulation, start him on rhythm suppressive therapy and bring him back 4 to [address] and attempt cardioversion again. MMLIZETL / IJN: [id number] /
== END 2017-09-14 10:45 | disposition home or self-care (01) ==
LOC: CATHCVL 07:55
PROVIDERS: ATTEND Internal Medicine Cardiovascular Disease
DX: I48.2 Chronic atrial fibrillation (principal); I10 Essential (primary) hypertension; Z79.01 Long term (current) use of anticoagulants; Z79.899 Other long term (current) drug therapy
CPT/HCPCS: 93312; 93320; 93005; 93325; 92960; J2001; J2704

== ENCOUNTER → 2017-11-08 | Day surgery (SDC) | payer BC ==
[2017-11-04 14:29] VITALS: BMI 34.7
[~2017-11-08] MED LIST changes: +MIDAZOLAM 2 MG/2 ML VIAL ONE; +PROPOFOL 10 MG/ML 20 ML VIAL IV ONE; +fentaNYL (PF) 50 MCG/ML 2 ML AMP ONE
[2017-11-08] MEDS: BENZOCAINE SPRAY 1 CAN MUCOUS MEM ONE ×2 (07:28→07:40)
[2017-11-08 07:31] LABS: Anion Gap 7 mmol/L; Blood Urea Nitrogen 14 mg/dL (9-20); Calcium 9.5 mg/dL (8.4-10.2); Carbon Dioxide 30 mmol/L (22-30); Chloride 103 mmol/L (98-107); Glucose 114 mg/dL (74-99); Non-African American GFR(MDRD) >60 (>60 ml/min/1.73 sqM); Sodium 140 mmol/L (137-145)
[2017-11-08 08:10] VITALS: RESP 16
--- NOTE | 2017-11-08 08:31 | ECHOT ---
TRANSESOPHAGEAL ECHOCARDIOGRAM TRANSESOPHAGEAL ECHOCARDIOGRAM: INDICATION: Chronic atrial fibrillation. After obtaining informed consent, the patient was anesthetized by the speech teacher using local and IV sedation. Procedure was performed using an Omniplane probe. Tolerated the procedure well. FINDINGS: 1. There is no intracardiac thrombus within the left atrial appendage, left atrium, right atrium, or right ventricle. 2. Left ventricle has normal size and systolic function with an ejection fraction of 50%. 3. Mitral valve shows mild mitral regurgitation. 4. Aortic valve is free of stenosis or regurgitation. 5. Tricuspid valve appears normal. 6. Interatrial septum appears normal. CONCLUSION: 1. No intracardiac thrombus. Will proceed with cardioversion. CARDIOVERSION: INDICATION: Chronic atrial fibrillation. Patient is adequately anticoagulated on Xarelto and is also on amiodarone. We attempted cardioversion using 360 joules of synchronized DC current. We made 2 attempts at cardioversion. He did not convert. He is already on amiodarone and he is on Xarelto. I tried Rythmol on him here, could not tolerate. So I am going to refer him to EP for ablation at this time. MMODL / IJN: [id number] /
[2017-11-08 09:40] VITALS: TEMP 98.2
[2017-11-08 09:41] VITALS: BP 125/85; PULSE 58
--- NOTE | 2017-11-08 14:13 | CONS ---
CONSULTATION Mr. Shook is a patient of Dr. Martell and Dr. See Lomax. Dr. Lomax asked me to evaluate him for management of symptomatic atrial fibrillation refractory to drug therapy as well as electrical cardioversion. This is a 57-year-old gentleman who was diagnosed with atrial fibrillation in July of 2017. His main complaint has been tiredness and fatigue and lack of energy for the last several months. In addition he has hypertension. He was first treated with Rythmol and he underwent electrical cardioversion. He remained in sinus rhythm for barely 10 minutes and converted back to atrial fibrillation. In addition, he could not function while taking Rythmol he was extremely sleepy and tired for the first 1/2 hour after taking the drug. Dr. Lomax brought him in today after amiodarone loading and for a EMILIANO electrical cardioversion. He was unsuccessful in cardioverting the patient. Patient has a history of hypertension and he is currently on clonidine and amlodipine and losartan. He also takes Toprol-XL 25 mg p.o. daily for rate control of atrial fibrillation as well as Xarelto 20 mg daily for stroke prevention. He has had a stress test in August 2017, apparently this was normal. ALLERGIES: No known drug allergies. REVIEW OF SYSTEMS: Currently no fever, chills, or rigors. No cough or expectoration. No nausea, vomiting, diarrhea, hematuria or dysuria. No strokes, seizures. His main complaint has been tiredness and fatigue and lack of energy. On examination, his blood pressure was in the normal range, 120/84 mmHg, his BMI is 36, pulse rate is in the 60s. He was not in any respiratory distress. Head and neck examination is normal. Heart sounds are irregular but normal. No murmurs, no gallops. Breath sounds are clear. No rhonchi, no crackles. Abdomen is soft, nontender. Extremities are warm. No edema. The transesophageal echo showed absence of any thrombus within the cardiac chambers. LV function at the lower limits of normal of 50%. Mild mitral regurgitation. No evidence of any significant aortic valve disease, no tricuspid valve disease and the interatrial septum was normal. Electrical cardioversion: A 360 joule biphasic shock synchronized was unsuccessful. His previous ECGs are reviewed. On November 26, 2015 he was in sinus rhythm. Heart rate 49 beats per minute. Chest x-ray in July 2017 showed a mildly enlarged cardiac silhouette, tortuous thoracic aorta. No acute pulmonary process. The EKG at that time, showed atrial fibrillation, heart rate 78 beats per minute. Narrow QRS. Renal artery Dopplers, no evidence of renal artery stenosis noted. A 2D echo in July 2017 showed severe concentric LVH with preserved LV systolic function. Mildly enlarged right ventricle, mildly dilated left atrium. A 12-lead ECG on September 14, 2017 showed atrial fibrillation with a controlled ventricular response, 55 beats per minute, narrow QRS. IMPRESSION: 1. Symptomatic atrial fibrillation with tiredness and fatigue refractory to drug therapy as well as electrical cardioversions, intolerance to Rythmol, failure of amiodarone, failure of two electrical cardioversions. The first time when he was cardioverted, he lasted for about 10 minutes. Following that, cardioversion was totally unsuccessful. 2. Hypertension. 3. Severe left ventricular hypertrophy. 4. Normal left atrium is only mildly enlarged. SUGGEST: 1. Continue Xarelto 20 mg p.o. daily. Continue rate control medications and consider antral isolation of pulmonary veins. I would recommend starting with cryoablation. 2. I had a very detailed discussion with the patient in the recovery area. He was fully alert and awake and he did have questions. I explained the procedure details for cryoablation and success rates and failure rates as well as complications. Complications discussed included cardiac puncture, damage to the normal electrical circuitry of the heart, phrenic nerve injury and risk of 3% to 5% was quoted, esophageal injury as well as the risk of stroke and the importance of continuing anticoagulation timmy procedure as well as postprocedure. 3. I also spoke to his regarding this and I will schedule the procedure for him. He would like to proceed with this within the next 2 to 3 months. Message was left with the office ophthalmic surgical assistant. Please note TSH is normal. MMODL / IJN: [id number] /
== END | disposition home or self-care (01) ==
LOC: CATHCVL 06:27
PROVIDERS: ATTEND Internal Medicine Cardiovascular Disease
DX: I48.2 Chronic atrial fibrillation (principal); I10 Essential (primary) hypertension; Z79.01 Long term (current) use of anticoagulants; Z79.899 Other long term (current) drug therapy
CPT/HCPCS: 93312; 93320; 93325; 92960; 80048; J2250; J3010; J2704

== ENCOUNTER → 2017-12-22 | Outpatient (CLI) | payer BC ==
[2017-12-22 11:28] LABS: HCT 42.3 % (39.0-53.0); HGB 14.3 gm/dL (13.0-17.5); MCH 29.2 pg (25.0-35.0); MCHC 33.8 g/dL (31.0-37.0); MCV 86.5 fL (80.0-100.0); Mean Platelet Volume 7.8; Platelet Count 181 k/uL (150-450); RBC 4.89 m/uL (4.30-5.90); RDW 12.7 % (11.5-15.5); WBC 3.6 k/uL (3.8-10.6)
[2017-12-22 11:35] LABS: Anion Gap 10 mmol/L; Blood Urea Nitrogen 15 mg/dL (9-20); Calcium 9.3 mg/dL (8.4-10.2); Carbon Dioxide 29 mmol/L (22-30); Chloride 102 mmol/L (98-107); Glucose 152 mg/dL (74-99); Potassium 4.6 mmol/L (3.5-5.1); Sodium 141 mmol/L (137-145)
== END | disposition home or self-care (01) ==
LOC: LABWHC1 10:49
PROVIDERS: ATTEND Internal Medicine Clinical Cardiac Electrophysiology
DX: I48.2 Chronic atrial fibrillation (principal)
CPT/HCPCS: 36415; 80048; 85027

== ENCOUNTER 2017-12-30 10:57 | Day surgery (SDC) | payer BC ==
[2017-12-22 09:43] VITALS: BMI 34.7
[~2017-12-30 10:57] MED LIST changes: +LACTATED RINGERS 1,000 ML IV SCH; -MIDAZOLAM 2 MG/2 ML VIAL ONE; -PROPOFOL 10 MG/ML 20 ML VIAL IV ONE; -fentaNYL (PF) 50 MCG/ML 2 ML AMP ONE
[2017-12-30 11:14] VITALS: PULSE 72; RESP 18; TEMP 97.8
[2017-12-30] MEDS ORDERED: cloNIDine 0.2 MG/24HR PATCH 1 PATCH PATCH TRANSDERM SCH (11:45)
[2017-12-30] MEDS ORDERED: amLODIPine 5 MG TAB PO STA (12:18)
[2017-12-30] MEDS ORDERED: LOSARTAN 50 MG TAB PO STA (12:18)
[2017-12-30] MEDS ORDERED: TRIAMTERENE-HCTZ 37.5-25MG 1 EACH CAP PO SCH (12:30)
[2017-12-30] MEDS ORDERED: amLODIPine 5 MG TAB PO ONE (12:36)
--- NOTE | 2017-12-30 12:51 | P.PCN ---
Preoperative Diagnosis: Patient came in for an A. fib ablation. He has symptomatic atrial fibrillation despite adequate rate control left frontal hypertrophy and hypertension. He has failed to antiarrhythmic drugs His admitting blood pressure was 1 9101 35 mmHg and repeat blood pressure was 1 8801 24 mmHg manually. I repeated his blood pressure and was taken both arms and his systolic blood pressure is 160-1 80 mmHg and the diastolic is consistently at [address] Davis recommended cancellation of the case on account of hypertensive surges during intubation I would also recommend deferring the case still his blood pressure is consistently under good control for at least 4-6 weeks prior to and ablation because in A. fib ablation will involve high-dose IV heparin along with continuation of an anticoagulant which would increase risk of intracerebral bleeding This was discussed the patient and his and other family members It would be prudent to hold off and get his blood pressure under control Suggest Amlodipine 5 mg twice daily Losartan 50 mg twice daily Dyazide one capsule daily in the morning Clonidine half tablet 3 times a day, each tablet being 0.1 mg completely taper off clonidine over the next 1-2 weeks Maximize losartan to 150 MG daily Continue Toprol-XL 25 mg by mouth daily If blood pressure still not controlled then consider switching from losartan irbesartan 300 mg by mouth daily in the morning and amlodipine 10 mg in the evening and continuing a diuretic, Dyazide Avoid long-term use of clonidine Discharge home if blood pressure diastolic is less than 100 mmHg and systolic less than 150 mmHg
--- NOTE | 2017-12-30 13:21 | P.CRDCN ---
History of Present Illness Consult reason: hypertension History of present illness: Patient admitted for evaluation and management of atrial fibrillation. He is complaining of headache and when his blood pressure was taken in the ESU it was significantly elevated above 1 90 mmHg systolic and 134 mmHg diastolic by automatic measurement. The manual measurement was 188/124 mmHg. I repeated his blood pressure myself and it was between 160s-180 mmHg systolic and diastolic was 1 20 mmHg and this was found to be elevated in both arms. The anesthesiologist Dr. Davis also repeated this and his diastolic was 1 20 mmHg His only complaint is headache. He denies any chest discomfort no dizziness lightheadedness palpitations no undue shortness of breath no upper abdominal symptoms no angina like symptoms no upper back symptoms Review of systems: No fever chills or rigors, no cough, phlegm or expectoration , no nausea, vomiting or diarrhea, no hematuria, dysuria, no musculoskeletal complaints, no strokes or seizures, no skin lesions. Past history of atrial fibrillation failed Rythmol failed amiodarone failed electrical cardioversion, left frontal hypertrophy severe, hypertension, currently uncontrolled. NO KNOWN DRUG ALLERGIES 2-D echo shows left ventricular systolic function of the lower limits of 50% Renal artery Dopplers did not any evidence for renal artery stenosis Twelve-lead ECG shows atrial fibrillation with a controlled ventricular response narrow QRS On examination blood pressure is as above heart rates in the 50s and 60s irregular Breath sounds are clear no rhonchi no crackles Heart sounds S1 and S2 normal no murmurs or gallop no S3 gallop Abdomen soft nontender Extremities warm no edema No JVD Impression Accelerated hypertension with mild headache He usually gets severe headache when his blood pressure goes up and he can feel it Left ventricular hypertrophy, severe by 2-D echo Persistent atrial fibrillation that has failed to antiarrhythmic drugs and electrical cardioversion The left atrium was noted to be only mildly enlarged Dietary noncompliance, increase salt intake through prepared and packaged foods rather than directly adding salt Final impression Patient came in for an A. fib ablation. He has symptomatic atrial fibrillation despite adequate rate control left frontal hypertrophy and hypertension. He has failed to antiarrhythmic drugs His admitting blood pressure was 1 9101 35 mmHg and repeat blood pressure was 1 8801 24 mmHg manually. I repeated his blood pressure and was taken both arms and his systolic blood pressure is 160-1 80 mmHg and the diastolic is consistently at [address] Davis recommended cancellation of the case on account of hypertensive surges during intubation I would also recommend deferring the case still his blood pressure is consistently under good control for at least 4-6 weeks prior to and ablation because in A. fib ablation will involve high-dose IV heparin along with continuation of an anticoagulant which would increase risk of intracerebral bleeding This was discussed the patient and his and other family members It would be prudent to hold off and get his blood pressure under control Suggest Amlodipine 5 mg twice daily Losartan 50 mg twice daily Dyazide one capsule daily in the morning Clonidine half tablet 3 times a day, each tablet being 0.1 mg completely taper off clonidine over the next 1-2 weeks Maximize losartan to 150 MG daily Continue Toprol-XL 25 mg by mouth daily If blood pressure still not controlled then consider switching from losartan irbesartan 300 mg by mouth daily in the morning and amlodipine 10 mg in the evening and continuing a diuretic, Dyazide Avoid long-term use of clonidine Detailed discussion the patient regarding the following Low salt diet Avoid prepared and packaged foods Avoid alcohol use No net cardiac benefit of coenzyme Q10 explained Medications scheduled over the next 7 days explained and he'll see Dr. Rubin in a week and Dr. Martell in 3 weeks I will schedule the ablation for him in about 2 months and I will see him 3 weeks prior to that Past Medical History Past Medical History: Atrial Fibrillation, Hypertension Additional Past Medical History / Comment(s): See Dr Álvarez's H&P History of Any Multi-Drug Resistant Organisms: C-DIFF Date of last positivie culture/infection: 2014 MDRO Source:: stool Past Surgical History: Hernia Repair, Tonsillectomy Additional Past Surgical History / Comment(s): CARDIOVERSION X 2; colonoscopy Past Anesthesia/Blood Transfusion Reactions: No Reported Reaction Smoking Status: Former smoker - Past Family History Father Family Medical History: No Reported History Mother Family Medical History: COPD Additional Family Medical History / Comment(s): sep 2016 Medications and Allergies Home Medications Medication Instructions Recorded Confirmed Type Ubidecarenone [Co Q-10] 100 mg PO DAILY 07/29/17 12/30/17 History Rivaroxaban [Xarelto] 20 mg PO W/SUPPER tab 07/31/17 12/30/17 Rx Metoprolol Succinate [Toprol XL] 25 mg PO DAILY 09/09/17 12/30/17 History Losartan [Cozaar] 150 mg PO DAILY #30 tab 12/30/17 Rx Triamterene-Hctz 37.5-25Mg 1 cap PO DAILY #30 capsule 12/30/17 Rx [Dyazide 37.5-25 Capsule] amLODIPine [Norvasc] 10 mg PO DAILY #30 tablet 12/30/17 Rx Allergies Allergy/AdvReac Type Severity Reaction Status Date / Time No Known Allergies Allergy Verified 12/22/17 09:38 Physical Exam Vitals: Vital Signs Temp Pulse Resp BP 12/30/17 11:10 97.8 F 72 18 189/128 Results Current Medications Generic Name Dose Route Start Last Admin Trade Name Freq PRN Reason Stop Dose Admin Sodium Chloride 1,000 mls @ 20 mls/hr 12/29/17 12:15 12/30/17 11:20 Saline 0.9% IV 0 mls .Q24H NAE Administration Lactated Ringer's 1,000 mls @ 20 mls/hr 12/30/17 05:44 Lactated Ringers IV .Q24H NAE Triamterene/HCTZ 1 each 12/30/17 12:30 12/30/17 12:36 Dyazide PO 1 each DAILY NAE Administration
--- NOTE | 2017-12-30 14:51 | P.DS ---
Providers Attending physician: Bello Álvarez Primary care physician: Stated None Hospital Course: Impression Accelerated hypertension with mild headache He usually gets severe headache when his blood pressure goes up and he can feel it Left ventricular hypertrophy, severe by 2-D echo Persistent atrial fibrillation that has failed to antiarrhythmic drugs and electrical cardioversion The left atrium was noted to be only mildly enlarged Dietary noncompliance, increase salt intake through prepared and packaged foods rather than directly adding salt Final impression Patient came in for an A. fib ablation. He has symptomatic atrial fibrillation despite adequate rate control left frontal hypertrophy and hypertension. He has failed to antiarrhythmic drugs His admitting blood pressure was 1 9101 35 mmHg and repeat blood pressure was 1 8801 24 mmHg manually. I repeated his blood pressure and was taken both arms and his systolic blood pressure is 160-1 80 mmHg and the diastolic is consistently at [address] Davis recommended cancellation of the case on account of hypertensive surges during intubation I would also recommend deferring the case still his blood pressure is consistently under good control for at least 4-6 weeks prior to and ablation because in A. fib ablation will involve high-dose IV heparin along with continuation of an anticoagulant which would increase risk of intracerebral bleeding This was discussed the patient and his and other family members It would be prudent to hold off and get his blood pressure under control Suggest Amlodipine 5 mg twice daily Losartan 50 mg twice daily Dyazide one capsule daily in the morning Clonidine half tablet 3 times a day, each tablet being 0.1 mg completely taper off clonidine over the next 1-2 weeks Maximize losartan to 150 MG daily Continue Toprol-XL 25 mg by mouth daily If blood pressure still not controlled then consider switching from losartan irbesartan 300 mg by mouth daily in the morning and amlodipine 10 mg in the evening and continuing a diuretic, Dyazide Avoid long-term use of clonidine Detailed discussion the patient regarding the following Low salt diet Avoid prepared and packaged foods Avoid alcohol use No net cardiac benefit of coenzyme Q10 explained Medications scheduled over the next 7 days explained and he'll see Dr. Rubin in a week and Dr. Martell in 3 weeks I will schedule the ablation for him in about 2 months and I will see him 3 weeks prior to that Patient Condition at Discharge: Undetermined Plan - Discharge Summary Discharge Rx Participant: No New Discharge Prescriptions: New amLODIPine [Norvasc] 10 mg PO DAILY #30 tablet Losartan [Cozaar] 150 mg PO DAILY #30 tab Triamterene-Hctz 37.5-25Mg [Dyazide 37.5-25 Capsule] 1 cap PO DAILY #30 capsule Discontinued cloNIDine HCL [Catapres] 0.1 mg PO BID #60 tab Losartan [Cozaar] 50 mg PO DAILY No Action Ubidecarenone [Co Q-10] 100 mg PO DAILY Rivaroxaban [Xarelto] 20 mg PO W/SUPPER tab Metoprolol Succinate [Toprol XL] 25 mg PO DAILY Discharge Medication List Ubidecarenone [Co Q-10] 100 mg PO DAILY 07/29/17 [History] Rivaroxaban [Xarelto] 20 mg PO W/SUPPER tab 07/31/17 [Rx] Metoprolol Succinate [Toprol XL] 25 mg PO DAILY 09/09/17 [History] Losartan [Cozaar] 150 mg PO DAILY #30 tab 12/30/17 [Rx] Triamterene-Hctz 37.5-25Mg [Dyazide 37.5-25 Capsule] 1 cap PO DAILY #30 capsule 12/30/17 [Rx] amLODIPine [Norvasc] 10 mg PO DAILY #30 tablet 12/30/17 [Rx] Follow up Appointment(s)/Referral(s): Gunnar Martell MD [STAFF PHYSICIAN] - 3 Weeks See Lomax MD [STAFF PHYSICIAN] - 1 Week Discharge Disposition: HOME SELF-CARE
[2017-12-30 15:37] VITALS: BP 180/90
== END 2017-12-30 15:30 | disposition home or self-care (01) ==
LOC: CATHEP 10:57
PROVIDERS: ATTEND Internal Medicine Clinical Cardiac Electrophysiology
DX: I11.9 Hypertensive heart disease without heart failure (principal); I48.1 Persistent atrial fibrillation; I48.2 Chronic atrial fibrillation; R51 Headache; Z79.01 Long term (current) use of anticoagulants; Z79.899 Other long term (current) drug therapy; Z87.891 Personal history of nicotine dependence

== ENCOUNTER → 2018-02-09 | Outpatient (CLI) | payer BC ==
[2018-02-09 15:41] LABS: HCT 38.2 % (39.0-53.0); HGB 13.3 gm/dL (13.0-17.5); MCH 28.7 pg (25.0-35.0); MCHC 34.9 g/dL (31.0-37.0); MCV 82.4 fL (80.0-100.0); Mean Platelet Volume 8.1; Platelet Count 176 k/uL (150-450); RBC 4.63 m/uL (4.30-5.90); WBC 4.5 k/uL (3.8-10.6)
[2018-02-09 15:53] LABS: Anion Gap 9 mmol/L; Blood Urea Nitrogen 18 mg/dL (9-20); Calcium 9.6 mg/dL (8.4-10.2); Carbon Dioxide 30 mmol/L (22-30); Chloride 100 mmol/L (98-107); Glucose 111 mg/dL (74-99); Potassium 4.3 mmol/L (3.5-5.1); Sodium 139 mmol/L (137-145)
== END | disposition home or self-care (01) ==
LOC: LABWHC1 14:53
PROVIDERS: ATTEND Internal Medicine Clinical Cardiac Electrophysiology
DX: I48.2 Chronic atrial fibrillation (principal)
CPT/HCPCS: 36415; 80048; 85027

== ENCOUNTER 2018-02-14 12:59 | Day surgery (SDC) | payer BC ==
[2018-02-09 14:22] VITALS: BMI 34.7
[2018-02-14] MEDS ORDERED: PHENYLEPHRINE-0.9% NACL SYG 1 MG/10 ML SYRINGE ONE (14:22)
[2018-02-14] MEDS ORDERED: HEPARIN SODIUM,PORCINE 10,000 UNIT/ML 1 ML VIAL ONE (14:22)
[2018-02-14] MEDS ORDERED: SUCCINYLCHOLINE CHLORIDE 100 MG/5 ML SYR IV ONE (14:22)
[2018-02-14] MEDS ORDERED: PROTAMINE SULFATE 10 MG/ML 5 ML VIAL IV ONE (14:22)
[2018-02-14] MEDS ORDERED: LIDOCAINE 1% INJ 10MG/ML (20 ML MDV) ONE (14:22)
[2018-02-14] MEDS ORDERED: fentaNYL (PF) 50 MCG/ML 2 ML AMP ONE (14:22)
[2018-02-14] MEDS ORDERED: PROPOFOL 10 MG/ML 20 ML VIAL IV ONE (14:22)
[2018-02-14] MEDS ORDERED: MIDAZOLAM 2 MG/2 ML VIAL ONE (14:22)
[2018-02-14] MEDS ORDERED: LIDOCAINE 2% INJ 20 MG/ML SQ ONE (14:56)
[2018-02-14] MEDS ORDERED: HEPARIN SOD,PORK IN 0.45% NACL 25,000 UNIT in 0.45% NACL 1 500ML.BAG IV ONE (15:28)
[2018-02-14] MEDS ORDERED: fentaNYL (PF) 50 MCG/ML 2 ML AMP IVP ONE (16:23)
[2018-02-14] MEDS ORDERED: ACETAMINOPHEN TAB 325 MG TAB PO PRN (17:19)
[2018-02-14] MEDS ORDERED: HYDROcodone/APAP 5-325MG 1 EACH TAB PO PRN (17:19)
[2018-02-14] MEDS ORDERED: IOPAMIDOL-250 100ML BTL INTRAARTER ONE (17:20)
[2018-02-14] MEDS ORDERED: RIVAROXABAN 20 MG TAB PO SCH (17:30)
--- NOTE | 2018-02-14 17:34 | P.PCN ---
Preoperative Diagnosis: Procedures performed ([facility] - CRYO Ablation) Invasive hemodynamic monitoring while general anesthesia, right femoral arterial line for monitoring and sampling Comprehensive diagnostic EP study CS pacing and recording Catheter the mapping of the tachycardia (NOT 3D mapping) Intracardiac echocardiography Pulmonary vein isolation with transseptal and comprehensive EPS, 84223 Additional linear ablation, LA roof Electrical cardioversion Procedure details Patient was brought to the EP lab in a fasting state. Written informed consent was obtained prior to the procedure. Procedure performed under general anesthesia After initial muscle relaxant use, muscle relaxants were not given thereafter in order to assess phrenic nerve during procedure Patient prepped and draped as per protocol Full cryo-set up with standard preparation of the cryoablation tools done Femoral Venous access obtained on the right and left groins Sheaths placed Diagnostic catheters for the high right atrium, phrenic nerve stimulation and pacing, His bundle, RV and coronary sinus placed Intracardiac echo catheter placed Long sheath placed in the right atrium Left and right transseptal catheterization performed under intracardiac echo guidance Intravenous heparin with aCT above 300 Later, catheter positioning and balloon positioning under intracardiac echo Baseline measurements Patient was in A. fib at the start of the study At the end of study sinus cycle length 880 QRS 112, QT 408, SC interval 193 AH interval 62 him a HV interval 67 Comprehensive diagnostic EP study with drug infusion Atrial pacing performed from the high right atrium and the coronary sinus Sinus node recovery times at 600 504 100 ms were 1117, 1179 and 1211. Corrected sinus node recovery times were within normal limits AV node Wenckebach block for 20 ms VA Wenckebach block between 400-450 ms Transseptal catheterization performed RA pressure 21/10/16 LA pressure 22/12/15 Transseptal catheterization performed with standard sheath. The cryoablation sheath was then placed with an over the wire exchange without any acute complications. All 4 pulmonary veins were isolated in the following sequence: Left superior followed by left inferior followed by right superior followed by right inferior The cryo-ablation balloon was placed at the os of each vein 1.5 mL of IV dye was injected to confirm an occluded vein Goal during cryoablation was to achieve -30C in the first 30 seconds. If not the balloon was repositioned to obtain this result After completion of Cryoblation with durations from 180-240 seconds, entrance block was confirmed with the Attain circular catheter in a roving fashion around the antrum of the pulmonary veins Phrenic nerve pacing was performed from the SVC, right innominate vein area and diaphragm voltage was monitored as well as manually Parameter goals for each cryo freeze -30C by 30 seconds -40C by 60 seconds Mediated between minus 40-55 Thaw time greater than 10 seconds Balloon visualized by intracardiac echo to ensure that the proximal one third was within the left atrium/antrum Left superior pulmonary vein required esophageal deflection 2 cryo lesions, 4 minutes followed by 2 minutes Complete isolation with entrance block Left inferior pulmonary vein required esophageal deflection 2 Cryoblation's 3 minutes followed by 3 minutes Complete isolation with entrance block Right superior pulmonary vein, during phrenic nerve pacing single cryoablation 3 minutes, time to effect 35 seconds Right inferior pulmonary vein, during phrenic nerve pacing 2 cryo lesions 3 minutes followed by 2 minutes Complete isolation with entrance block Anterior LA wall Cryoblation outside the right-sided veins, 2 minutes Roofline, 3 cryoablation's, minutes each, good temperature achieved, required esophageal deflection At the end of the procedure the Achieve catheter was once again used to check for entrance block Phrenic nerve stimulation was performed to confirm diaphragmatic stimulation the end of the procedure Cine fluoroscopy was performed at the very end of the procedure to confirm movement of both diaphragms with inspiration and expiration At the end of the procedure the patient was extubated Heparin was reversed Venous sheaths were removed and hemostasis assured Result Successful pulmonary vein isolation using cryo-ablation Complete entrance block in all 4 veins confirmed No evidence for phrenic nerve injury Cryoablation along the anterior wall of the LA outside the right-sided veins Cryoablation, roofline Left-sided esophagus requiring deflection to the right side, for the left- sided veins Left-sided esophagus requiring further left-sided deflection for the roofline Plan Lifelong anticoagulation Flecainide 50 mg twice daily Continue antihypertensive therapy Anesthesia: GETA Disposition: observation
[2018-02-14] MEDS ORDERED: ACETAMINOPHEN IV (For NPO) 1,000 MG in EMPTY BAG 1 BAG IVPB ONE (18:30)
[2018-02-14] MEDS ORDERED: MORPHINE SULFATE/PF 10MG/10ML VL IVP PRN ×2 (18:49)
[2018-02-14] MEDS: FLECAINIDE 50 MG TAB PO SCH (20:46)
[2018-02-14] MEDS ORDERED: LOSARTAN 50 MG TAB PO SCH (21:00)
[2018-02-14] MEDS ORDERED: COLCHICINE 0.6 MG TAB PO STA (22:29)
[2018-02-14] MEDS ORDERED: FAMOTIDINE 20 MG TAB PO STA (22:30)
[2018-02-15] MEDS: FLECAINIDE 50 MG TAB PO SCH (08:34)
[2018-02-15 08:48] VITALS: RESP 18
[2018-02-15] MEDS ORDERED: TRIAMTERENE-HCTZ 37.5-25MG 1 EACH CAP PO SCH (09:00)
[2018-02-15] MEDS ORDERED: METOPROLOL SUCCINATE (ER) 25 MG TAB.ER.24H PO SCH (09:00)
[2018-02-15] MEDS ORDERED: amLODIPine 10 MG TAB PO SCH (09:00)
[2018-02-15] MEDS ORDERED: RX INFO: IV CONTRAST WAS GIVEN 1 EACH MISC MISCELLANE PRN (10:22)
--- NOTE | 2018-02-15 10:34 | P.DS ---
Providers Attending physician: Bello Álvarez Primary care physician: Gunnar Martell [place] Hospital Course: Patient is doing well. He complains of numbness in his face neck left arm and left side of the body and left leg and it feels heavy and numb. He was lying flat on the ablation table for about 3 hours and then subsequently because he was expressing back problems, he was laid on the left side for about 6 hours or so He does have a little chest discomfort and sore throat and a lot of cough On examination his blood pressures 140/78 mmHg heart rate in the 70s afebrile 97.8F Breath sounds are clear no rhonchi no crackles Heart sounds are normal Extremities warm No edema Groins of healed well Impression Persistent, symptomatic atrial fibrillation that has failed Rythmol and has failed amiodarone and feels electrical cardioversions in the past Referred by Dr. Rubin for A. fib ablation Underwent cryoablation of the pulmonary veins as well as roofline Left-sided esophagus, esophagus had to be deflected both rightwards and leftwards Electrical cardioversion was performed at the end of the procedure Plan CT of the chest with contrast to evaluate for chest pain and for esophageal injury Anticoagulation Flecainide 50 mg twice daily Continue all other medications continue antihypertensive therapy Follow-up with Dr. Rubin in 1 week Patient Condition at Discharge: Stable Plan - Discharge Summary Discharge Rx Participant: Yes New Discharge Prescriptions: New Flecainide [Tambocor] 50 mg PO Q12HR #90 tablet Continue Rivaroxaban [Xarelto] 20 mg PO W/SUPPER tab Metoprolol Succinate [Toprol XL] 25 mg PO DAILY amLODIPine [Norvasc] 10 mg PO DAILY #30 tablet Triamterene-Hctz 37.5-25Mg [Dyazide 37.5-25 Capsule] 1 cap PO DAILY #30 capsule Losartan [Cozaar] 150 mg PO HS Discharge Medication List Rivaroxaban [Xarelto] 20 mg PO W/SUPPER tab 07/31/17 [Rx] Metoprolol Succinate [Toprol XL] 25 mg PO DAILY 09/09/17 [History] Triamterene-Hctz 37.5-25Mg [Dyazide 37.5-25 Capsule] 1 cap PO DAILY #30 capsule 12/30/17 [Rx] amLODIPine [Norvasc] 10 mg PO DAILY #30 tablet 12/30/17 [Rx] Flecainide [Tambocor] 50 mg PO Q12HR #90 tablet 02/14/18 [Rx] Losartan [Cozaar] 150 mg PO HS 02/14/18 [History] Follow up Appointment(s)/Referral(s): See Lomax MD [STAFF PHYSICIAN] - 1 Week Activity/Diet/Wound Care/Special Instructions: Post EP study - Ablation instructions 1. Keep access sites dry for 2 days. 2. No heavy lifting or straining for 2 days. 3. Avoid bending the hips repeatedly for 2 days. 4. You may go up and down stairs slowly Call if the following is noted 1. Bleeding, increasing swelling or pain at the access sites. 2. Increasing chest discomfort, especially upon taking a deep breath. 3. Increasing shortness of breath, at rest or with exertion. 4. Undue cough / phlegm 5. Difficulty or pain while swallowing. 6. Pain or change in color in the extremities. 7. Fever, chills, rigors. 8. Increasing headache or neurologic symptoms. 9. Dizziness, fainting, palpitations New medication Flecainide 50 mg twice daily Continue all other medications without any changes Continue Xarelto as before Discharge Disposition: HOME SELF-CARE
[2018-02-15 11:33] LABS: Anion Gap 10 mmol/L; Blood Urea Nitrogen 16 mg/dL (9-20); Carbon Dioxide 31 mmol/L (22-30); Chloride 97 mmol/L (98-107); Glucose 124 mg/dL (74-99); Sodium 138 mmol/L (137-145)
[2018-02-15 11:52] VITALS: BP 132/85; PULSE 75; TEMP 97.1
--- NOTE | 2018-02-15 12:18 | CT ---
EXAMINATION TYPE: CT chest w con DATE OF EXAM: 02/15/2018 COMPARISON: NONE HISTORY: Patient has no complaints at time of study. Rule out esophageal tear post cardiac ablation. CT DLP: 606.1 mGycm Automated exposure control for dose reduction was used. CONTRAST: CT scan of the chest is performed with IV Contrast, patient injected with 100 mL of Isovue 300. FINDINGS: LUNGS: The lungs are grossly clear, there is no concerning parenchymal mass or nodule identified. Mi ld dependent atelectasis seen at the lung bases. There is no pleural effusion or pneumothorax seen. The tracheobronchial tree is patent. MEDIASTINUM: No evidence for mediastinal air to suggest esophageal injury. There are no greater than 1 cm hilar or mediastinal lymph nodes. No pericardial effusion is seen. Thoracic aorta is of jay l caliber. The heart is enlarged. UPPER ABDOMEN: No significant abnormality appreciated. OTHER: No additional significant abnormality is seen. IMPRESSION: 1.No evidence for mediastinal air to suggest esophageal injury. 2. Cardiomegaly.
== END 2018-02-15 16:25 | disposition home or self-care (01) ==
LOC: CATHEP 12:59 → 3OBS 17:15 → CATHEP 02-15 16:25
PROVIDERS: ATTEND Internal Medicine Clinical Cardiac Electrophysiology
DX: I48.2 Chronic atrial fibrillation (principal); I10 Essential (primary) hypertension; Z79.01 Long term (current) use of anticoagulants; Z79.899 Other long term (current) drug therapy
CPT/HCPCS: 93662; 93609; 93656; 80048; 71260; C1769 ×4; C1894 ×3; C1730 ×3; C1759; C1893; C1733; C1766; J2001; J1644; J3010; Q9966; Q9967; J2270

== ENCOUNTER 2020-01-31 09:19 | Day surgery (SDC) | payer BC ==
[2020-01-29 10:15] VITALS: BMI 36.6
[~2020-01-31 09:19] MED LIST changes: -LACTATED RINGERS 1,000 ML IV SCH
[2020-01-31] MEDS ORDERED: SODIUM CHLORIDE 0.9% 500 ML 500 ML IV ONE (09:51)
[2020-01-31 09:53] VITALS: TEMP 98.1
[2020-01-31 09:55] LABS: Glucose,Whole Blood 130 mg/dL (75-99)
[2020-01-31] MEDS ORDERED: MIDAZOLAM 2 MG/2 ML VIAL ONE (10:17)
[2020-01-31] MEDS ORDERED: PROPOFOL 10 MG/ML 20 ML VIAL IV ONE (10:17)
[2020-01-31] MEDS ORDERED: BENZOCAINE SPRAY 1 CAN MUCOUS MEM ONE ×2 (10:40→10:48)
[2020-01-31 10:50] LABS: African American GFR (CKD) >90 (>60 ml/min/1.73 sqM); Anion Gap 10 mmol/L; Blood Urea Nitrogen 18 mg/dL (9-20); Calcium 9.5 mg/dL (8.4-10.2); Carbon Dioxide 27 mmol/L (22-30); Chloride 101 mmol/L (98-107); Glucose 139 mg/dL (74-99); Non-African American GFR(CKD) 81 (>60 ml/min/1.73 sqM); Potassium 4.1 mmol/L (3.5-5.1); Sodium 138 mmol/L (137-145)
[2020-01-31 11:05] VITALS: RESP 16
--- NOTE | 2020-01-31 11:23 | ECHOT ---
TRANSESOPHAGEAL ECHOCARDIOGRAM INDICATION: Persistent atrial fibrillation. After obtaining informed consent, transesophageal echocardiogram is performed in left lateral position using an Omniplane probe. Local and IV sedation were obtained by the rewinder. The patient tolerated the procedure well without any obvious immediate complications. FINDINGS: 1. There is no intracardiac thrombus within the left atrial appendage, left atrium, right atrium, right ventricle or left ventricle. 2. Mitral valve is anatomically normal. There is trace mitral regurgitation noted. 3. Tricuspid valve appears normal. There is mild tricuspid regurgitation noted. 4. Aortic valve is a 3-leaflet valve. There is no evidence of aortic stenosis or regurgitation. 5. Interatrial septum: There is no evidence of dwjk-yc-tpfbr shunt by color-flow Doppler or tdoyb-ym-dpoh shunt by agitated saline contrast study. 6. Aorta shows mild atherosclerotic changes. 7. Left ventricle has normal size and systolic function. CONCLUSION: No intracardiac thrombus within the left atrial appendage. PLAN: Patient will undergo cardioversion. MMODL / IJN: [id number] /
--- NOTE | 2020-01-31 11:25 | CE ---
CARDIAC ELECTROPHYSIOLOGY REPORT CARDIOVERSION NOTE: INDICATION: Persistent atrial fibrillation. After obtaining informed consent, making sure that the patient does not have intracardiac thrombus, the patient was sedated by the rotating field assembler and underwent cardioversion. He received initially 300 joules of synchronized DC current following which he did not convert to sinus rhythm. Went on to receive 360 joules of synchronized DC current with which he converted to sinus rhythm. The patient will continue the anticoagulant that he is on and will follow up with me in a week's time. KEMI / FLAVIO: [id number] /
[2020-01-31 12:35] VITALS: BP 104/56; PULSE 61
== END 2020-01-31 12:35 | disposition home or self-care (01) ==
LOC: CATHCVL 09:19
PROVIDERS: ATTEND Internal Medicine Cardiovascular Disease
DX: I48.19 Other persistent atrial fibrillation (principal); I07.1 Rheumatic tricuspid insufficiency; I10 Essential (primary) hypertension; F17.210 Nicotine dependence, cigarettes, uncomplicated; E11.9 Type 2 diabetes mellitus without complications; K21.9 Gastro-esophageal reflux disease without esophagitis; Z79.01 Long term (current) use of anticoagulants; Z79.84 Long term (current) use of oral hypoglycemic drugs; Z79.899 Other long term (current) drug therapy; Z98.890 Other specified postprocedural states
CPT/HCPCS: 93312; 93320; 93325; 92960; 80048; J2250; J2704

== ENCOUNTER → 2023-07-21 | Day surgery (SDC) | payer BC ==
[~2023-07-21] MED LIST changes: +BENZOCAINE SPRAY 1 CAN TOPICAL ONE; +LACTATED RINGERS 1,000 ML IV SCH; +LIDOCAINE 1% (10MG/ML) FOR IV START INTRADERMA PRN; +LIDOCAINE 2% INJ 20 MG/ML (2 ML VIAL) ONE; +PROPOFOL 10 MG/ML 20 ML VIAL IV ONE
[2023-07-21 07:20] LABS: Glucose,Whole Blood 153 mg/dL (70-110)
[2023-07-21 07:23] VITALS: TEMP 97.5
[2023-07-21 07:41] LABS: African American GFR (CKD) >90 (>60 ml/min/1.73 sqM); Anion Gap 11 mmol/L; Blood Urea Nitrogen 18 mg/dL (9-20); Calcium 9.8 mg/dL (8.4-10.2); Carbon Dioxide 28 mmol/L (22-30); Chloride 97 mmol/L (98-107); Glucose 147 mg/dL (74-99); Non-African American GFR(CKD) 78 (>60 ml/min/1.73 sqM); Potassium 4.1 mmol/L (3.5-5.1); Sodium 136 mmol/L (137-145)
[2023-07-21 08:54] VITALS: BP 121/96; PULSE 76; RESP 16
--- NOTE | 2023-07-22 09:48 | ECHOS ---
STRESS ECHOCARDIOGRAM PROCEDURE PERFORMED: Transesophageal echo. INDICATION: Persistent atrial fibrillation to rule out intracardiac thrombus prior to cardioversion. PROCEDURE NOTE: After obtaining informed consent, transesophageal echocardiogram was performed in left lateral position using an Omniplane probe. Local and IV sedation were obtained by the mold closer helper. The patient tolerated the procedure well without any obvious immediate complications. FINDINGS: 1. There is no intracardiac thrombus within the left atrial appendage, left atrium, right atrium, right ventricle or left ventricle. 2. Left ventricle has normal size and systolic function. 3. Left atrium appears enlarged. 4. Right ventricle appears enlarged. 5. Mitral valve is anatomically normal. There is mild to moderate mitral regurgitation noted. Tricuspid valve shows mild tricuspid regurgitation. Aortic valve is free of stenosis or regurgitation. 6. Aortic root measures within normal limits. There is no evidence of xlkj-le-fwitb shunt by color-flow Doppler or prqpr-pf-ivsx shunt by agitated saline contrast study. CONCLUSION: No intracardiac thrombus. PLAN: Patient will undergo cardioversion. PROCEDURE PERFORMED: Cardioversion. INDICATION: Symptomatic persistent atrial fibrillation. PROCEDURE NOTE: After obtaining informed consent, cardioversion was performed using 200 joules of synchronized DC current. The patient was sedated by the mold closer helper. Intracardiac thrombus was ruled out by transesophageal echo and patient was adequately anticoagulated with Xarelto. He converted to sinus rhythm following 3 shocks of 150, 200, and 200 joules. He will be discharged home on the Xarelto and will follow up with me in a week's time. MMODL / IJN: [id number] /
== END ==
LOC: OR 06:08
PROVIDERS: ATTEND Internal Medicine Cardiovascular Disease
DX: I34.0 Nonrheumatic mitral (valve) insufficiency (principal); I07.1 Rheumatic tricuspid insufficiency; I48.91 Unspecified atrial fibrillation; I10 Essential (primary) hypertension; E11.9 Type 2 diabetes mellitus without complications; F12.90 Cannabis use, unspecified, uncomplicated; Z79.01 Long term (current) use of anticoagulants; Z87.891 Personal history of nicotine dependence; Z79.899 Other long term (current) drug therapy
CPT/HCPCS: 93312; 93320; 93325; 92960; 80048; J2704; J2001

== ENCOUNTER → 2024-10-25 | Day surgery (SDC) | payer BC ==
[2024-10-24 09:49] VITALS: BMI 32.1
[~2024-10-25] MED LIST changes: -BENZOCAINE SPRAY 1 CAN TOPICAL ONE; -LACTATED RINGERS 1,000 ML IV SCH; -LIDOCAINE 1% (10MG/ML) FOR IV START INTRADERMA PRN; -LIDOCAINE 2% INJ 20 MG/ML (2 ML VIAL) ONE; -SODIUM CHLORIDE 0.9% 1,000 ML IV SCH; +SODIUM CHLORIDE 0.9% 500 ML 500 ML IV SCH
[2024-10-25 10:08] LABS: Glucose,Whole Blood 131 mg/dL (70-110)
[2024-10-25] MEDS: IV FLUID CONTINUATION 1,000 ML IV ONE (10:12)
[2024-10-25 10:13] VITALS: TEMP 97.1
[2024-10-25 10:27] LABS: African American GFR (CKD) 76 (>60 ml/min/1.73 sqM); Anion Gap 9 mmol/L; Blood Urea Nitrogen 17 mg/dL (9-20); Calcium 9.7 mg/dL (8.4-10.2); Carbon Dioxide 28 mmol/L (22-30); Chloride 94 mmol/L (98-107); Glucose 129 mg/dL (74-99); Non-African American GFR(CKD) 66 (>60 ml/min/1.73 sqM); Sodium 131 mmol/L (137-145)
[2024-10-25 11:53] VITALS: BP 130/89; PULSE 66; RESP 16
--- NOTE | 2024-10-26 08:55 | ECHOT ---
TRANSESOPHAGEAL ECHOCARDIOGRAM PROCEDURE: EMILIANO. INDICATION: To rule out intracardiac thrombus prior to cardioversion in a patient with persistent atrial fibrillation. PROCEDURE NOTE: After obtaining informed consent, transesophageal echocardiogram was performed in left lateral position using an Omniplane probe. Local and IV sedations were obtained by the composition instructor. The patient tolerated the procedure well without any obvious immediate complications. FINDINGS: 1. There is no thrombus within the left atrial appendage, left atrium, right atrium, right ventricle, or left ventricle. 2. Left ventricle has normal size and systolic function. 3. Left atrium appears enlarged. 4. Right atrium and right ventricle seem within normal limits. 5. Aortic valve is a 3-leaflet valve. There is no evidence of aortic stenosis or regurgitation. There is mild mitral regurgitation and mild tricuspid regurgitation. There is no evidence of dbpx-xq-bczac shunt by color-flow Doppler or sallb-mk-eyly shunt by agitated saline contrast study across the interatrial septum. CONCLUSIONS: 1. No intracardiac thrombus. 2. Normal left ventricular systolic function. PLAN: The patient will undergo cardioversion. MMODL / IJN: [id number] /
--- NOTE | 2024-10-26 12:10 | PCN ---
PROCEDURE NOTE PROCEDURE: Cardioversion. INDICATION: Persistent atrial fibrillation. PROCEDURE NOTE: After obtaining informed consent, cardioversion was performed with 150 and 200 joules of synchronized DC current. It converted to sinus rhythm following a second shock. He was adequately anticoagulated with Xarelto and intracardiac thrombus was ruled out by transesophageal echo. KEMI / FLAVIO: [id number] /
== END ==
LOC: OR 09:02
PROVIDERS: ATTEND Internal Medicine Cardiovascular Disease
DX: I08.1 Rheumatic disorders of both mitral and tricuspid valves (principal); I48.19 Other persistent atrial fibrillation; I10 Essential (primary) hypertension; E11.9 Type 2 diabetes mellitus without complications; Z79.01 Long term (current) use of anticoagulants; Z79.84 Long term (current) use of oral hypoglycemic drugs; Z79.899 Other long term (current) drug therapy
CPT/HCPCS: 93312; 93320; 93325; 92960; 80048; J2704